=== PATIENT | female | born 1960 | race Caucasian/White ===

== ENCOUNTER 2018-04-29 23:21 | Emergency (ER) | payer OTHER ==
[~2018-04-29] VITALS: Ht 165.1 cm; Wt 77.1 kg
[~2018-04-29 23:21] MED LIST: CELEXA20 MG; CLEOCIN HCL150 MG PO; HYDROCHLOROTHIA25 M2; HYDROCODONE-AP1 EAC6 PO; MEDROLDOSEPACK PO
[2018-04-30 00:09] LABS: ABSOLUTE BASOPHILS 0.1 thou/uL (0.0-0.2); ABSOLUTE EOSINOPHILS 0.1 thou/uL (0.0-0.7); ABSOLUTE LYMPHOCYTES 3.8 thou/uL (0.8-5.3); ABSOLUTE MONOCYTES 0.4 thou/uL (0.0-1.2); ABSOLUTE NEUTROPHILS 3.5 thou/uL (1.6-8.1); EOSINOPHILS 1.1 %; HEMATOCRIT 46.6 % (37.0-47.0); HEMOGLOBIN 15.7 gm/dL (12.0-15.0); LYMPHOCYTES 48.6 %; MCHC 33.6 g/dL (28.0-37.0); MONOCYTES 4.6 %; MPV 9.5 fl. (7.2-11.1); NUCLEATED RBCS 0 /100WBC; PLATELET COUNT* 144 thou/uL (150-400); POLYS 44.7 %; RBC 4.35 mil/uL (4.20-5.00); WBC 7.9 thou/uL (4.0-11.0)
[2018-04-30 00:17] LABS: CALCIUM 8.7 mg/dL (8.5-10.1); CREATININE 0.5 mg/dL (0.6-1.3); POTASSIUM 3.3 mmol/L (3.5-5.1)
[2018-04-30 00:22] LABS: ALBUMIN 3.7 g/dL (3.4-5.0); TOTAL BILIRUBIN 0.3 mg/dL (<0.1-1.0); TOTAL PROTEIN 8.5 g/dL (6.4-8.2); URIC ACID* 4.6 mg/dL (2.6-7.2)
[2018-04-30] MEDS ORDERED: NAPROSYN500 MG PO (00:46)
[2018-04-30] MEDS ORDERED: BACTRIM DS TAB1 EACH PO (00:46)
[2018-04-30 01:13] VITALS: BP 121/85
== END 2018-04-30 01:13 | disposition home or self-care (01) ==
LOC: M.ERS 23:21
PROVIDERS: Nurse Practitioner Family
DX: S90.111A Contusion of right great toe without damage to nail, initial encounter (principal); J44.9 Chronic obstructive pulmonary disease, unspecified; Z88.0 Allergy status to penicillin; W22.03XA Walked into furniture, initial encounter; Y93.89 Activity, other specified; Y92.89 Other specified places as the place of occurrence of the external cause; Y99.8 Other external cause status

== ENCOUNTER 2019-07-02 09:41 | Emergency (ER) | payer OTHER ==
[~2019-07-02] VITALS: Ht 170.2 cm; Wt 77.1 kg
[~2019-07-02 09:41] MED LIST changes: +BACTRIM DS TAB1 EACH PO; +NAPROSYN500 MG PO
[2019-07-02 10:11] LABS: URINE BLOOD NEGATIVE (Negative); URINE CLARITY CLEAR; URINE COLOR YELLOW; URINE GLUCOSE-RANDOM NEGATIVE (Negative); URINE KETONES 1+ (Negative); URINE PROTEIN 1+ (Negative); URINE SPECIFIC GRAVITY >= 1.030 (1.005-1.030); URINE UROBILINOGEN 0.2 E.U./dl (0.2-1.0)
[2019-07-02 10:15] LABS: URINE BILIRUBIN 1+ (Negative); URINE LEUKOCYTES-REFLEX 2+ (Negative); URINE NITRITE-REFLEX POSITIVE (Negative)
[2019-07-02 10:16] LABS: ICTOTEST (BILI CONFIRMATORY) Negative (Negative)
[2019-07-02 10:17] LABS: BACTERIA-REFLEX >30 Many /HPF (None Seen); CASTS None Seen /LPF (None Seen); CRYSTALS None Seen /LPF (None Seen); MUCUS >6 Heavy strn/LPF (None Seen); SQUAMOUS 0-3 Few /LPF (0-3); URINE RBC 3-10 Few /HPF (0-2); URINE WBC-REFLEX >25 Many /HPF (0-5)
[2019-07-02] MEDS ORDERED: PYRIDIUM100 M1 PO (10:25)
[2019-07-02] MEDS ORDERED: BACTRIM DS TAB1 EACH PO (10:25)
[2019-07-02] MEDS ORDERED: HYDROCHLOROTHIA25 M2 PO (10:29)
[2019-07-02 10:33] VITALS: BP 112/70
== END 2019-07-02 10:33 | disposition home or self-care (01) ==
LOC: M.ERS 09:41
PROVIDERS: Emergency Medicine
DX: N39.0 Urinary tract infection, site not specified (principal); N30.80 Other cystitis without hematuria; J44.9 Chronic obstructive pulmonary disease, unspecified; Z88.0 Allergy status to penicillin; Z88.5 Allergy status to narcotic agent; Z90.710 Acquired absence of both cervix and uterus; Z87.891 Personal history of nicotine dependence

== ENCOUNTER 2021-02-23 11:33 | Emergency (ER) | payer OTHER ==
[~2021-02-23] VITALS: Ht 170.2 cm; Wt 76.2 kg
[~2021-02-23 11:33] MED LIST changes: +HYDROCHLOROTHIA25 M2 PO; +PYRIDIUM100 M1 PO
[2021-02-23 12:23] LABS: ABSOLUTE BASOPHILS 0.1 thou/uL (0.0-0.2); ABSOLUTE EOSINOPHILS 0.1 thou/uL (0.0-0.7); ABSOLUTE LYMPHOCYTES 1.5 thou/uL (0.8-5.3); ABSOLUTE MONOCYTES 0.3 thou/uL (0.0-1.2); ABSOLUTE NEUTROPHILS 2.4 thou/uL (1.6-8.1); BASOPHILS 1.9 %; EOSINOPHILS 2.3 %; HEMATOCRIT 38.1 % (37.0-47.0); HEMOGLOBIN 13.1 gm/dL (12.0-15.0); LYMPHOCYTES 34.4 %; MCH 37.4 pg (26.0-34.0); MCHC 34.3 g/dL (28.0-37.0); MCV 109.1 fL (80.0-100.0); MONOCYTES 6.9 %; MPV 9.4 fl. (7.2-11.1); NUCLEATED RBCS 0 /100WBC; PLATELET COUNT* 63 thou/uL (150-400); POLYS 54.5 %; WBC 4.4 thou/uL (4.0-11.0)
[2021-02-23 12:40] LABS: CREATININE 0.7 mg/dL (0.6-1.3); POTASSIUM 3.7 mmol/L (3.5-5.1)
[2021-02-23 12:44] LABS: ALBUMIN 2.9 g/dL (3.4-5.0); TOTAL BILIRUBIN 0.9 mg/dL (<0.1-1.0); TOTAL PROTEIN 8.9 g/dL (6.4-8.2)
[2021-02-23 13:05] LABS: PLATELET ESTIMATE DECREASED
[2021-02-23 14:25] LABS: URINE BILIRUBIN NEGATIVE (Negative); URINE BLOOD TRACE (Negative); URINE CLARITY CLEAR; URINE COLOR YELLOW; URINE GLUCOSE-RANDOM 1+ (Negative); URINE KETONES NEGATIVE (Negative); URINE LEUKOCYTES-REFLEX NEGATIVE (Negative); URINE PROTEIN NEGATIVE (Negative)
[2021-02-23 14:31] LABS: URINE NITRITE-REFLEX POSITIVE (Negative)
[2021-02-23 14:35] LABS: SQUAMOUS >10 Many /LPF (0-3)
[2021-02-23 14:36] LABS: BACTERIA-REFLEX >30 Many /HPF (None Seen); CASTS None Seen /LPF (None Seen); MUCUS None Seen strn/LPF (None Seen); URINE RBC 0-2 Rare /HPF (0-2); URINE WBC-REFLEX >25 Many /HPF (0-5)
[2021-02-23] MEDS ORDERED: HYDROCHLOROTHIA25 M1 PO (14:36)
[2021-02-23] MEDS ORDERED: ALBENZA200 MG PO (14:36)
[2021-02-23 14:37] LABS: CRYSTALS None Seen /LPF (None Seen)
[2021-02-23] MEDS ORDERED: TRAMADOL 50 MG50 MG PO (14:38)
[2021-02-23 14:44] VITALS: BP 145/68
[2021-02-23] MEDS ORDERED: MACROBID 100 M100 M2 PO (15:20)
--- NOTE | 2021-02-23 18:57 | EKG ---
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: DAMIÁN : 1960 Requested By: Malathi Pacheco Order Number: [id number] MD: Luis Antonio Mahoney Measurements Intervals [place] Rate: 82 P: 80 OK: 120 QRS: 44 QRSD: 86 T: 39 QT: 409 QTc: 478 Interpretive Statements Sinus rhythm Atrial premature complexes Low voltage, precordial leads No previous ECG available for comparison Electronically Signed On 02-23-2021 18:57:32 CDT by Luis Antonio Mahoney [email or web address] <ELECTRONICALLY SIGNED> By: Luis Antonio Mahoney MD, FAC 02/23/21 1857 1233 1233 Luis Antonio Mahoney MD, [facility] /EPI
== END 2021-02-23 14:45 | disposition home or self-care (01) ==
LOC: M.ERS 11:33
PROVIDERS: Nurse Practitioner Family
DX: B82.9 Intestinal parasitism, unspecified (principal); N39.0 Urinary tract infection, site not specified; K74.60 Unspecified cirrhosis of liver; R94.5 Abnormal results of liver function studies; R73.9 Hyperglycemia, unspecified; Z76.0 Encounter for issue of repeat prescription; I10 Essential (primary) hypertension; J44.9 Chronic obstructive pulmonary disease, unspecified; Z87.891 Personal history of nicotine dependence; Z88.0 Allergy status to penicillin; Z88.5 Allergy status to narcotic agent; Z90.710 Acquired absence of both cervix and uterus

== ENCOUNTER 2021-07-13 11:21 | Emergency (ER) | payer OTHER ==
[~2021-07-13] VITALS: Ht 170.2 cm; Wt 76.2 kg
[~2021-07-13 11:21] MED LIST changes: +ALBENZA200 MG PO; +HYDROCHLOROTHIA25 M1 PO; +MACROBID 100 M100 M2 PO; +TRAMADOL 50 MG50 MG PO
[2021-07-13 11:43] VITALS: BP 127/71
== END 2021-07-13 11:44 | disposition home or self-care (01) ==
LOC: M.ERS 11:21
DX: F41.9 Anxiety disorder, unspecified (principal); R19.7 Diarrhea, unspecified; R11.10 Vomiting, unspecified; I10 Essential (primary) hypertension; J44.9 Chronic obstructive pulmonary disease, unspecified; Z90.711 Acquired absence of uterus with remaining cervical stump; Z79.899 Other long term (current) drug therapy; Z88.5 Allergy status to narcotic agent; Z88.0 Allergy status to penicillin; Z87.891 Personal history of nicotine dependence